=== PATIENT | female | born 1965 | race Hispanic/Latino ===

== ENCOUNTER 2018-02-11 15:12 | Outpatient (CLI) | payer BC, OTHER | END 2018-02-11 15:13 | disposition home or self-care (01) | LOC: LABHHL 15:12 | PROVIDERS: ATTEND Specialist | DX: R92.0 Mammographic microcalcification found on diagnostic imaging of breast (principal) | CPT/HCPCS: 88305; 88342 ==

== ENCOUNTER 2018-03-03 09:25 | Outpatient (CLI) | payer BC ==
--- NOTE | 2018-03-04 10:20 | Magnetic Resonance Report ---
BILATERAL BREAST MRI WITHOUT AND WITH CONTRAST: 03/03/18 09:25:00 CLINICAL: Newly diagnosed right breast cancer. 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 Negative for invasive carcinoma. COMPARISON:Bilateral mammogram from [facility] 01/15/18. TECHNIQUE: Axial 1.0-mm T1 without, axial high resolution 2.0-mm T2 and axial 1.0-mm dynamic Vibrant high-resolution postcontrast T1 fat saturation sequences on a 1.5 Cheryl magnet. The examination was performed with an 8 channel dedicated [employer] breast coil. Post processing with CAD and subtraction was performed on an [employer] workstation. 17.0 cc of Multihance was injected without incident for the contrast portion of the exam. Consent was obtained prior to the administration of the contrast. FINDINGS: Right: Minimal background parenchymal enhancement. The stereotactic biopsy site is identified at 3 o'clock approximately 7.6 cm from the nipple. A post biopsy hematoma at the site measures 9 x 8 x 5 mm. Focal non-mass enhancement at the margin of the biopsy site measures 17 x 10 x 8 mm. It demonstrates heterogeneous enhancement with mixed kinetics, 223% peak enhancement, 32% type I persistent, 60% type II plateau and 8% type III washout. No other mass or suspicious enhancement of the right breast. No suspicious right axillary right internal mammary lymph nodes. Left: Minimal background parenchymal enhancement. Three lesions of focal non-Mass enhancement are identified. Lesion 1 is in the outer breast slightly above the nipple and 5.3 cm from the nipple and measures 6.3 x 5.9 x 4.0 mm. It demonstrates heterogeneous enhancement with mixed kinetics, 152% peak enhancement, 7% type I persistent, 88% type II plateau and 5% type III washout. Lesion 2 is in the outer breast slightly above the nipple and 6.2 cm from the nipple and measures 4.0 x 3.3 x 1.2 mm. It demonstrates heterogeneous enhancement with mixed kinetics, 144% peak enhancement, 5% type I persistent, 86% type II plateau and 9% type III washout. Lesion 3 is at 3 o'clock 6.6 cm from the nipple and measures 2.7 x 3.3 x 1.0 mm. It demonstrates heterogeneous enhancement with mixed kinetics, 137% peak enhancement, 6% type I persistent, 94% type II plateau and 0% type III washout. No suspicious left axillary or left internal mammary lymph nodes. IMPRESSION: 1. Known right DCIS with a 17 mm lesion of non-Mass enhancement at the margin of the stereotactic biopsy site. No additional suspicious lesion of the right breast. 2. Three lesions of suspicious focal non-Mass enhancement in the left breast with each lesion measuring 6.3 mm, 4.0 mm and 3.3 mm maximum diameter. Recommend MRI guided biopsy of one or more sites of the left breast. The largest lesion is probably amenable to successful biopsy but the two smaller lesions may be too small to reproduce for successful biopsy. 3. No suspicious lymph nodes. RIGHT BI-RADS 6 -- Known Cancer LEFT BI-RADS 4 -- Suspicious
== END 2018-03-03 09:26 | disposition home or self-care (01) ==
LOC: SPVIMAG 09:25
PROVIDERS: ATTEND Surgery
DX: C50.311 Malignant neoplasm of lower-inner quadrant of right female breast (principal)
CPT/HCPCS: A9577; C8908; 77059

== ENCOUNTER 2018-03-12 10:26 | Outpatient (CLI) | payer BC ==
--- NOTE | 2018-03-12 12:54 | Mammography Report ---
LEFT DIGITAL DIAGNOSTIC MAMMOGRAM: 03/12/18 10:26:00 CLINICAL: For clip placement immediately status post MRI biopsy at 2 sites. COMPARISON:01/15/18 FINDINGS: 2 biopsy clips are identified in the upper outer breast and correlate with the biopsy lesions.Clips are only 1 cm apart. IMPRESSION: Concordant clip placement status post MRI biopsy of 2 sites. BI-RADS CATEGORY: 4--Suspicious Pathology pending.
--- NOTE | 2018-03-12 13:45 | Magnetic Resonance Report ---
MRI GUIDED VACUUM ASSISTED CORE BIOPSY TWO SITES LEFT BREAST: 03/12/18 CLINICAL: Known right breast cancer and additional suspicious lesions of the left breast on MRI. COMPARISON: 03/03/18 MRI FINDINGS: Consent for the procedure was obtained. A Vibrant dynamic postcontrast series was performed on a 1.5 Cheryl magnet using an 8 channel [employer] dedicated breast coil. Two lesions were identified and the lesions correlate with lesions 1 and 2 from the previous study. The 2 lesions localized and targeted using Dyn Sentinelle biopsy software. The skin was anesthetized with 1% lidocaine and small dermatotomies were performed. 2% lidocaine was administered for deeper anesthesia. 9-G biopsy was performed with an Knock Knock vacuum assisted device. Imaging demonstrated satisfactory positioning of the probe at the two sites and satisfactory samples were obtained. Clips were placed at both sites after confirmation of adequate sampling. The probes were removed and hemostasis was achieved with pressure to the sites. A sterile dressing was applied. The patient tolerated the procedure well and there were no apparent complications other than mild bleeding from the skin incisions. A two view mammogram demonstrated concordant placement of both clips. A small postbiopsy hematoma was identified on the mammogram and the dressing was blood stained at the time of the mammogram. The skin incisions were redressed after the mammogram and an Codey bandage was applied for to prevent further bleeding. The patient left the department in good condition with instructions for wound care and follow-up. IMPRESSION: Successful MRI biopsy with clip placement at two sites left breast.
--- NOTE | 2018-03-12 13:45 | Magnetic Resonance Report ---
MRI GUIDED VACUUM ASSISTED CORE BIOPSY TWO SITES LEFT BREAST: 03/12/18 CLINICAL: Known right breast cancer and additional suspicious lesions of the left breast on MRI. COMPARISON: 03/03/18 MRI FINDINGS: Consent for the procedure was obtained. A Vibrant dynamic postcontrast series was performed on a 1.5 Cheryl magnet using an 8 channel [employer] dedicated breast coil. Two lesions were identified and the lesions correlate with lesions 1 and 2 from the previous study. The 2 lesions localized and targeted using [employer] Sentinelle biopsy software. The skin was anesthetized with 1% lidocaine and small dermatotomies were performed. 2% lidocaine was administered for deeper anesthesia. 9-G biopsy was performed with an [employer] vacuum assisted device. Imaging demonstrated satisfactory positioning of the probe at the two sites and satisfactory samples were obtained. Clips were placed at both sites after confirmation of adequate sampling. The probes were removed and hemostasis was achieved with pressure to the sites. A sterile dressing was applied. The patient tolerated the procedure well and there were no apparent complications other than mild bleeding from the skin incisions. A two view mammogram demonstrated concordant placement of both clips. A small postbiopsy hematoma was identified on the mammogram and the dressing was blood stained at the time of the mammogram. The skin incisions were redressed after the mammogram and an Codey bandage was applied for to prevent further bleeding. The patient left the department in good condition with instructions for wound care and follow-up. IMPRESSION: Successful MRI biopsy with clip placement at two sites left breast.
== END 2018-03-12 10:27 | disposition home or self-care (01) ==
LOC: SPVIMAG 10:26
PROVIDERS: ATTEND Surgery
DX: D24.2 Benign neoplasm of left breast (principal); C50.911 Malignant neoplasm of unspecified site of right female breast; N60.12 Diffuse cystic mastopathy of left breast
CPT/HCPCS: 19085; 19086; 77065; 88305; A4648; A9577